=== PATIENT | female | born 1990 | race American Indian/Alaskan Native ===

== ENCOUNTER 2021-04-11 07:15 | Emergency (ER) | payer SELFPAY ==
[2021-04-11] MEDS ORDERED: SODIUM CHLORIDE 0.9% 1000 ML 1,000 ML ONE (07:35)
[2021-04-11] MEDS ORDERED: SODIUM CHLORIDE 0.9% 1000 ML 1,000 ML IV ONE (07:44)
[2021-04-11 08:47] LABS: Basophils % (Auto) 0.3 % (0.0-1.8); Eosinophils % (Auto) 0.6 % (0.0-4.3); Hematocrit 46.1 % (30.3-42.9); Hemoglobin 15.2 gm/dl (10.1-14.3); Lymphocytes # (Auto) 1.2 K/mm3 (1.2-5.4); Lymphocytes % (Auto) 28.4 % (13.4-35.0); Mean Corpuscular HGB Conc 33 % (30-34); Mean Corpuscular Volume 92 fl (79-97); Monocytes # (Auto) 0.3 K/mm3 (0.0-0.8); Monocytes % (Auto) 6.2 % (0.0-7.3); Platelet Count 133 K/mm3 (140-440); Red Blood Count 5.02 M/mm3 (3.65-5.03); Red Cell Distribution Width 15.9 % (13.2-15.2)
[2021-04-11 08:53] LABS: Alanine Aminotransferase 16 units/L (7-56); Albumin 5.2 g/dL (3.9-5); BUN/Creatinine Ratio 43; Blood Urea Nitrogen 34 mg/dL (7-17); Calcium 10.6 mg/dL (8.4-10.2); Hemolysis Index 23
[2021-04-11] MEDS ORDERED: LACTATED RINGERS 1,000 ML IV ONE (13:15)
--- NOTE | 2021-04-11 13:26 | Emergency Department Report ---
HPI - General Chief Complaint: Weakness Time Seen by Provider: 04/11/21 12:58 - HPI HPI: 30-year-old female with no prior medical history presents complaining of generalized weakness and lightheadedness since last night which has developed after 5 days of fasting with no food or water. Patient states that she is fasting "for baptist reasons". She is unable to say for what holiday she is fasting. She says she has not had anything to eat or any water or drink for the past 5 days. Yesterday in the evening she began to feel slightly lightheaded an d with generalized weakness which made her come in for further evaluation. Other than not eating and feeling slightly lightheaded and weak she denies any fever/chills, headache, vision change, chest pain, shortness of breath, abdominal pain, nausea/vomiting, dysuria, back pain, focal weakness, sensory changes, or any other complaints. ED Past Medical Hx - Past Medical History Previous Medical History?: No - Surgical History Past Surgical History?: No - Social History Smoking Status: Never Smoker Substance Use Type: None - Medications Home Medications: Home Medications Medication Instructions Recorded Confirmed Last Taken Type Fexofenadine/Pseudoephedrine 1 each PO Q12H #20 tab.er.12h 10/16/15 Unknown Rx [Bianca-D 12 Hour Tablet] Ibuprofen [Motrin] 800 mg PO Q8HR PRN #60 tablet 10/16/15 Unknown Rx guaiFENesin/CODEINE [Robitussin AC] 5 ml PO TID #120 ml 10/16/15 Unknown Rx ED Review of Systems ROS: Stated complaint: FASTING NOT EATING 5 DAYS Other details as noted in HPI Constitutional: weakness. denies: chills, fever Eyes: denies: eye pain, vision change ENT: denies: throat pain, congestion Respiratory: denies: cough, shortness of breath Cardiovascular: denies: chest pain, palpitations, syncope Gastrointestinal: denies: abdominal pain, nausea, vomiting, diarrhea, constipation Genitourinary: denies: dysuria, frequency Musculoskeletal: denies: back pain, arthralgia Skin: denies: rash, lesions Neurological: other (lightheadedness). denies: headache, weakness, numbness, paresthesias, vertigo Hematological/Lymphatic: denies: easy bleeding Physical Exam - Physical Exam Vital Signs: Vital Signs Lab Results Physical Exam: GENERAL: Extremely thin young female in no acute distress. HEAD: Normocephalic. No obvious signs of trauma. ENT: Dry mucous membranes. EYES: Extraocular movements are intact. Pupils are equal round and reactive to light bilaterally NECK: Supple. Full ROM is intact. Trachea is midline. LUNGS: Nonlabored breathing. Equal chest rise bilaterally. Clear to auscultation bilaterally. CARDIOVASCULAR: Regular rate and rhythm. No murmurs or rubs. VASCULAR: Cap refill < 2 seconds. 2+ peripheral pulses. ABDOMEN: Abdomen is soft and nondistended. There is no significant tenderness, guarding or rebound. SKIN: Skin is warm and dry NEURO: Patient is awake, alert, and oriented. card reader II-XII grossly intact. No focal deficits. Normal motor and sensory exam throughout. Normal speech. MUSCULOSKELETAL: No obvious deformities. No significant tenderness. Normal ROM throughout. BACK/SPINE: No midline tenderness or step-offs of the C/T/L spine. No costovertebral angle tenderness. ED Course Vital Signs 04/11/21 08:16 Temperature 98 F Pulse Rate 117 H Respiratory 16 Rate Blood Pressure 116/89 [Right] O2 Sat by Pulse 98 Oximetry ED Medical Decision Making - Lab Data Result diagrams: 04/11/21 07:50 04/11/21 07:50 Lab Results 04/11/21 04/11/21 04/11/21 Range/Units 07:50 07:50 07:50 WBC 4.1 L (4.5-11.0) K/mm3 RBC 5.02 (3.65-5.03) M/mm3 Hgb 15.2 H (10.1-14.3) gm/dl Hct 46.1 H (30.3-42.9) % MCV 92 (79-97) fl MCH 30 (28-32) pg MCHC 33 (30-34) % RDW 15.9 H (13.2-15.2) % Plt Count 133 L (140-440) K/mm3 Lymph % (Auto) 28.4 (13.4-35.0) % Cameron % (Auto) 6.2 (0.0-7.3) % Eos % (Auto) 0.6 (0.0-4.3) % Baso % (Auto) 0.3 (0.0-1.8) % Lymph # (Auto) 1.2 (1.2-5.4) K/mm3 Cameron # (Auto) 0.3 (0.0-0.8) K/mm3 Eos # (Auto) 0.0 (0.0-0.4) K/mm3 Baso # (Auto) 0.0 (0.0-0.1) K/mm3 Seg Neutrophils % 64.5 (40.0-70.0) % Seg Neutrophils # 2.6 (1.8-7.7) K/mm3 Sodium 149 H (137-145) mmol/L Potassium 4.6 (3.6-5.0) mmol/L Chloride 110.3 H (98-107) mmol/L Carbon Dioxide 18 L (22-30) mmol/L Anion Gap 25 mmol/L BUN 34 H (7-17) mg/dL Creatinine 0.8 (0.6-1.2) mg/dL Estimated GFR > 60 ml/min BUN/Creatinine Ratio 43 % Glucose 72 (65-100) mg/dL Calcium 10.6 H (8.4-10.2) mg/dL Total Bilirubin 1.20 (0.1-1.2) mg/dL AST 31 (5-40) units/L ALT 16 (7-56) units/L Alkaline Phosphatase 81 (35-129) units/L Total Protein 9.9 H (6.3-8.2) g/dL Albumin 5.2 H (3.9-5) g/dL Albumin/Globulin Ratio 1.1 % HCG, Qual Negative (Negative) Urine Color (Yellow) Urine Turbidity (Clear) Urine pH (5.0-7.0) Ur Specific Norris (1.003-1.030) Urine Protein (Negative) mg/dL Urine Glucose (UA) (Negative) mg/dL Urine Ketones (Negative) mg/dL Urine Blood (Negative) Urine Nitrite (Negative) Urine Bilirubin (Negative) Urine Urobilinogen (<2.0) mg/dL Ur Leukocyte Esterase (Negative) Urine WBC (Auto) (0.0-6.0) /HPF Urine RBC (Auto) (0.0-6.0) /HPF U Epithel Cells (Auto) (0-13.0) /HPF Hyaline Casts /LPF Urine Mucus /HPF 04/11/21 Range/Units 13:54 WBC (4.5-11.0) K/mm3 RBC (3.65-5.03) M/mm3 Hgb (10.1-14.3) gm/dl Hct (30.3-42.9) % MCV (79-97) fl MCH (28-32) pg MCHC (30-34) % RDW (13.2-15.2) % Plt Count (140-440) K/mm3 Lymph % (Auto) (13.4-35.0) % Cameron % (Auto) (0.0-7.3) % Eos % (Auto) (0.0-4.3) % Baso % (Auto) (0.0-1.8) % Lymph # (Auto) (1.2-5.4) K/mm3 Cameron # (Auto) (0.0-0.8) K/mm3 Eos # (Auto) (0.0-0.4) K/mm3 Baso # (Auto) (0.0-0.1) K/mm3 Seg Neutrophils % (40.0-70.0) % Seg Neutrophils # (1.8-7.7) K/mm3 Sodium (137-145) mmol/L Potassium (3.6-5.0) mmol/L Chloride (98-107) mmol/L Carbon Dioxide (22-30) mmol/L Anion Gap mmol/L BUN (7-17) mg/dL Creatinine (0.6-1.2) mg/dL Estimated GFR ml/min BUN/Creatinine Ratio % Glucose (65-100) mg/dL Calcium (8.4-10.2) mg/dL Total Bilirubin (0.1-1.2) mg/dL AST (5-40) units/L ALT (7-56) units/L Alkaline Phosphatase (35-129) units/L Total Protein (6.3-8.2) g/dL Albumin (3.9-5) g/dL Albumin/Globulin Ratio % HCG, Qual (Negative) Urine Color Yellow (Yellow) Urine Turbidity Clear (Clear) Urine pH 5.0 (5.0-7.0) Ur Specific Norris 1.033 H (1.003-1.030) Urine Protein 30 mg/dl (Negative) mg/dL Urine Glucose (UA) Neg (Negative) mg/dL Urine Ketones 80 (Negative) mg/dL Urine Blood Mod (Negative) Urine Nitrite Neg (Negative) Urine Bilirubin Neg (Negative) Urine Urobilinogen < 2.0 (<2.0) mg/dL Ur Leukocyte Esterase Neg (Negative) Urine WBC (Auto) 3.0 (0.0-6.0) /HPF Urine RBC (Auto) < 1.0 (0.0-6.0) /HPF U Epithel Cells (Auto) 3.0 (0-13.0) /HPF Hyaline Casts 82 /LPF Urine Mucus Few /HPF - Medical Decision Making 30-year-old female presents complaining of generalized weakness and lightheadedness which developed last night after 5 days of fasting including no food or drink of any kind. Labs were ordered in triage as well as 1 L of IV fluids which the patient has received. On initial assessment, the patient was noted to be tachycardic with a heart rate of 117. The remainder of her vital signs are within normal limits. By the time that I saw the patient, her tachycardia had resolved. Physical examination reveals a very thin young female with dry mucous membranes. She has no abdominal tenderness and the remainder of her physical examination is within normal limits. She has a nonfocal neurologic exam. I spoke with the patient about how her fasting is extremely dangerous to her health and how although fasts can last several days or even wee ks without solid food, the human body cannot survive without water. Her labs have resulted and reveal pancytopenia with the exception of elevated hemoglobin of 15.2 which I suspect is related to the patient's hemoconcentration from her poor volume status. She has several mild laboratory abnormalities including sodium of 149, chloride of 110.3, CO2 of 18, BUN of 34, and creatinine of 0.8 which is consistent with dehydration and likely starvation ketoacidosis as well. We will give an additional 1 L of IV fluid, p.o. challenge the patient and perform an ambulation trial. Urinalysis has returned and reveals no signs of infection. The patient tolerated her p.o. trial and was able to ambulate with steady gait. She states that she feels much better now. Her lightheadedness/generalized weakness has resolved. I spoke with her about her severe malnutrition and pancytopenia (which may be related but may also require further workup) and the need for her to discontinue fasting of any kind for now or in the future until cleared by doctor. I also have given her a copy of her labs and greatly emphasized to her the importance of following up these labs in 2 days for repeat labs and follow up with a primary care doctor. She expressed understanding and agreement with this plan of care. Critical care attestation.: If time is entered above; I have spent that time in minutes in the direct care of this critically ill patient, excluding procedure time. ED Disposition Clinical Impression: Pancytopenia, Malnutrition, Dehydration, Starvation ketoacidosis Disposition: TO HOME OR SELFCARE Is pt being admited?: No Condition: Stable Instructions: Hypernatremia, [id number], Protein-Energy Malnutrition, Rehydration, Adult, Dehydration, Adult Additional Instructions: Your labs show several electrolytes abnormalities as well as abnormalities in the levels of different cell types in your blood. This needs close follow-up and possible further workup with a primary care doctor and repeat lab work to ensure resolution of these abnormalities in the next 2 days. Please discontinue fasting for your health. It is not medically safe for you to continue fasting. Return to the emergency department should you develop worsening symptoms, inability to tolerate food or drink by mouth, or for any other new concerns. Referrals: [facility] [Provider Group] - 3-5 Days
[2021-04-11 14:12] LABS: Bilirubin,Urine NEG (Negative); Blood,Urine MOD (Negative); Color,Urine Yellow (Yellow); Hyaline Casts,Urine 82 /LPF; Mucus,Urine FEW /HPF; RBC,Urine < 1.0 /HPF (0.0-6.0); Urobilinogen,Urine < 2.0 mg/dL (<2.0)
[2021-04-11 15:43] VITALS: BP 108/69
== END 2021-04-11 15:47 | disposition home or self-care (01) ==
LOC: ED 07:15
DX: D61.818 Other pancytopenia (principal); E46 Unspecified protein-calorie malnutrition; E86.0 Dehydration; E87.2 Acidosis
CPT/HCPCS: 36415; 80053; 81001; 84703; 85025; 96360; 96361; 99283; J7030; J7120